=== PATIENT | female | born 1955 | race Caucasian/White ===

== ENCOUNTER → 2020-10-30 | Outpatient (CLI) | payer OTHER | LOC: M.RAD 10-17 14:26 | PROVIDERS: ATTEND Internal Medicine | DX: Z12.31 Encounter for screening mammogram for malignant neoplasm of breast (principal); N95.1 Menopausal and female climacteric states; M85.88 Other specified disorders of bone density and structure, other site ==

== ENCOUNTER → 2020-11-20 | Outpatient (CLI) | payer OTHER | LOC: M.ULTRA 12:08 | PROVIDERS: ATTEND Internal Medicine | DX: R92.2 Inconclusive mammogram (principal) ==